=== PATIENT | female | born 1960 | race Two or more races ===

== ENCOUNTER 2022-12-11 20:26 | Emergency (ER) | payer OTHER ==
[~2022-12-11] VITALS: Ht 152.4 cm; Wt 65.8 kg
[2022-12-11] MEDS ORDERED: KETOROLAC TROMETHAMINE INJ 60 MG/2 ML VIAL IM ONE (21:00)
[2022-12-11] MEDS ORDERED: CYCLOBENZAPRINE 10 MG TABLET PO ONE (21:00)
[2022-12-11 21:01] VITALS: TEMP 98.5
[2022-12-11] MEDS ORDERED: CYCLOBENZAPRINE 10 MG TABLET ONE (21:06)
[2022-12-11] MEDS ORDERED: KETOROLAC TROMETHAMINE 15 MG/ML VIAL ONE (21:06)
[2022-12-11 21:21] VITALS: BP 147/89
[2022-12-11] MEDS ORDERED: CYCL5TAB PO (22:00)
[2022-12-11] MEDS ORDERED: NAPR-1164 PO (22:00)
[2022-12-11] MEDS ORDERED: LIDO30AD10 TP (22:00)
[2022-12-11 22:12] VITALS: O2SAT 99
== END 2022-12-11 22:13 | disposition home or self-care (01) ==
LOC: ER 20:26
DX: M47.819 Spondylosis without myelopathy or radiculopathy, site unspecified (principal); M54.9 Dorsalgia, unspecified; Z79.899 Other long term (current) drug therapy
CPT/HCPCS: 99283; 96372; J1885